=== PATIENT | male | born 1985 | race Caucasian/White ===

== ENCOUNTER 2019-07-16 07:07 | Outpatient (CLI) | payer OTHER, SELFPAY ==
--- NOTE | 2019-07-19 12:32 | WPDHOLTEREM ---
Holter/Event Monitor Holter/Event Monitor Date of procedure: 07/16/19 Procedure Type: 48 hour holter monitor Indications: Syncope Conclusion: 1. 48 hour holter monitor on 07/16/19. 2. Underlying rhythm is sinus rhythm. HR range 43-160 bpm; average HR 76 bpm. 3. There are 10 premature supraventricular complexes and 8 supraventricular couplets. No supraventricular tachycardia. 4. There are 6 premature ventricular complexes. No ventricular tachycardia. 5. There are no sinoatrial or atrioventricular blocks. No significant pauses greater than 2 seconds. 6. Patient reports feeling faint twice which demonstrate sinus rhythm, HR range 72-104 bpm
== END 2019-07-16 07:08 | disposition home or self-care (01) ==
PROVIDERS: PCP Internal Medicine; Visit Provider Internal Medicine
DX: R55 Syncope and collapse (principal)
CPT/HCPCS: 93225; 93226